=== PATIENT | female | born 1965 | race Caucasian/White ===

== ENCOUNTER → 2021-06-20 | Outpatient (CLI) | payer OTHER ==
[~2021-06-20] MED LIST: CATAPRES 0.1MG0.1 MG PO; ECOTRIN81 MG PO; FEOSOL325 MG PO; HYDROCHLOROTHIA25 MG PO; KEFLEX CAP 500500 MG PO; LIPITOR40 MG PO; PRINIVIL10 MG PO
== END ==
LOC: MAMO 12:06
DX: Z12.31 Encounter for screening mammogram for malignant neoplasm of breast (principal); R79.89 Other specified abnormal findings of blood chemistry; N28.1 Cyst of kidney, acquired
CPT/HCPCS: 77063; 77067